=== PATIENT | female | born 1960 | race Asian ===

== ENCOUNTER 2017-05-05 13:50 | Emergency (ER) | payer SELFPAY ==
[2017-05-05] MEDS: LIDOCAINE 1% (MDV) 20 ML INJ SC (14:50)
== END 2017-05-05 15:29 | disposition home or self-care (01) ==
LOC: FTE 13:50
DX: D49.89 Neoplasm of unspecified behavior of other specified sites (principal)
CPT/HCPCS: 88305; 99283